=== PATIENT | male | born 1940 | race Caucasian/White ===

== ENCOUNTER 2024-09-26 21:39 | Emergency (ER) | payer OTHER, SELFPAY ==
[2024-09-26 21:42] VITALS: BP 157/91; BMI 27.8
[2024-09-26 22:00] VITALS: BP 143/88
[2024-09-26 22:19] LABS: ALT (SGPT) 20 U/L (0-50); AST (SGOT) 24 U/L (17-59); Albumin 4.1 g/dl (3.5-5.0); Alkaline Phosphatase 50 U/L (38-126); Blood Urea Nitrogen 28 mg/dl (9-20); Calcium 9.5 mg/dl (8.4-10.2); Carbon Dioxide 26 mmol/L (22-30); Chloride 107 mmol/L (98-107); Estimated Creatinine Clearance 51 ml/min; Glucose 100 mg/dl (70-99); Potassium 4.0 mmol/L (3.5-5.1); Sodium 137 mmol/L (135-145); Total Protein 6.4 g/dl (6.3-8.2); eGFR > 60.00
[2024-09-26 22:20] LABS: Hematocrit 46.7 % (39.0-52.0); Hemoglobin 15.5 g/dL (13.0-18.0); Mean Corp Hgb Conc. 33.2 g/dL (33.0-37.0); Mean Corpuscular Volume 95.7 fL (80.0-94.0); Nucleated Red Blood Cells % 0 % (-); Platelet Count 157 10^3/uL (130-400); Red Cell Dist. Width 14.4 % (11.5-14.5)
--- NOTE | 2024-09-26 22:52 | ED.CVA ---
History of Present Illness
General
Chief Complaint: CVA/TIA Symptoms
Source: patient and spouse
Exam Limitations: none
Time Seen by Provider: 09/26/24 21:57
Nursing documentation reviewed up to this point in time: agreed with
Onset of Stroke Symptoms
Onset of symptoms known: No
Time pt last seen normal is known: No
History of Present Illness
History of Present Illness:
Patient is an 83-year-old male past medical history of A-fib on Coumadin presents to the ER for evaluation. He reports he finished dinner around 7 PM and while sitting there was looking down at his placement. There was a toothpick on his placement
and he reports it appeared that the toothpick was moving to the right however he did not feel that he was spitting. He then stood up to go to the bathroom and felt a little off balance. The visual disturbance lasted for about 10 minutes EMS was
called and brought patient here to the ER he has been asymptomatic since. He had no associated headache nausea vomiting chest pain shortness of breath. No neck pain. No diplopia. No recent injury. No chiropractor manipulation of his neck. She
is yet to get back to work. Patient was admited in for vertigo 04/2018.
Past History
Past History
ED Past Medical History: Arrthythmia and Other (Pulmonary emboli)
ED Past Surgical History: Appendectomy and Urological
Social History
Tobacco: Non-smoker
Living: with family
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
Phy Exam
General Physical Exam
General Presentation: no apparent distress
General age: appears stated age
General Skin: warm and dry
General Habitus: normal
General Mental: alert
General Hydration: appears well hydrated
Eye Exam
Eye Exam: PERRL and other (no nystagmus b/l )
Eye Exam General: PERRL: bilateral and EOM intact: bilateral
Pupil Exam: Bilateral: round and reactive
Cardiovascular Exam
Cardiovascular Exam: regular rate/rhythm, no murmur and normal peripheral pulses
Pulmonary Exam
Pulmonary Exam: lungs clear and no respiratory distress
Neurological Exam
Neurological Exam: alert and oriented x3
Musculoskeletal Exam
Musculoskeletal Exam: full ROM
Skin Exam
Skin Exam: normal color and warm/dry
Psychiatric Exam
Psychiatric Exam: normal mood/affect
Course
Orders/Labs/Results
Orders:
Orders
09/26/24 21:52
EKG [Electrocardiogram (*1)] Urgent
Reason for Study: Tachycardia
EKG- Treatment ONCE
09/26/24 21:54
Complete Blood Count/With Diff Urgent
Comprehensive Metabolic Panel Urgent
09/26/24 22:00
PT/INR [Prothrombin Time] Urgent
09/26/24 22:42
0.9% Sodium Chloride 1000 ml [Nss] 1,000 ml IV BOLUS
09/26/24 22:43
CT Head W/o Iv Contrast Urgent
Comment:
Reason For Exam: dizziness
09/26/24 22:59
UA Reflex to Culture [Urinalysis Reflex To Culture] Urgent
Date Specimen was Collected: 09/26/24
Time Specimen was Collected: 22:53
Urine Microscopic Reflex Cult Urgent
Abnormal Lab Results
09/26/24 09/26/24 09/26/24
21:54 22:00 22:59
WBC 17.9 H 10^3/uL
(4.8-10.8)
MCV 95.7 H fL
(80.0-94.0)
MCH 31.8 H pg
(27.0-31.0)
Absolute Lymphs (auto) 13.5 H 10^3/uL
(1.2-3.4)
Neutrophils % 17.5 L %
(42.2-75.2)
Lymphocytes % 75.7 H %
(20.5-51.1)
PT 23.5 H Sec
(11.4-14.6)
BUN 28 H mg/dl
(9-20)
Glucose 100 H mg/dl
(70-99)
Ur Occult Blood Reflex 1+ A
(Negative)
Urine Bacteria (Reflex) Few A
(Negative)
Urine Albumin (Reflex) 1+ A
(Neg - Trace)
09/26/24 21:54
09/26/24 21:54
Vital Signs
Initial and Last Documented VS:
Initial Vital Signs
Temp Pulse Resp BP Pulse Ox
98.1 F 87 17 157/91 100
09/26/24 21:42 09/26/24 21:42 09/26/24 21:42 09/26/24 21:42 09/26/24 21:42
Last Documented Vital Signs
Temp Pulse Resp BP Pulse Ox
98.1 F 74 17 134/76 96
09/26/24 21:42 09/27/24 00:00 09/27/24 00:00 09/27/24 00:00 09/27/24 00:00
Shear Operator Helper consulted with Physician
Shear Operator Helper consulted with physician?: Yes
Name of Physician Consulted: Gracia
MDM/Problems Addressed
MDM/Problems Addressed:
Patient presented with vertigo type symptoms however has been asymptomatic upon arrival. He has been steady on his feet and presented with no neurological deficit .patient ambulated back and forth to the bathroom without any difficulty. No
headache no recent trauma or injury no chiropractic manipulation. It is documented the patient had vertigo previously when he was admitted in 2019. He denies any recent fever chills or illness. He is afebrile white count elevated however patient
has no infectious symptoms.
His BUN is mildly elevated he was given fluids in the ER. Urinalysis negative for infection lungs are clear no complaints of cough CAT scan unremarkable. Patient is in chronic A-fib and is anticoagulated on Coumadin with an INR of 2.08
Discussed close outpatient follow with PCP and to return if any worsening of symptoms Case reviewed ED physician
*Radiology
Radiology exam reviewed: radiology read reviewed
*Pulse Oximetry
SaO2: 99
Oxygen Mode of Delivery: Room air
Patient hypoxic: no
*EKG
Interpreted by ED Provider?: Yes
Rate: normal
Rhythm: a-fib
Ischemia: no ischemia
*Critical Care Note
Total Time (30-74mins, 75-104mins- exclusive of procedures): Not Applicable
Data Reviewed
Review of Other/Old Records Reveals: Discharge Summary and Other (Previous admission)
Source: patient and spouse
ED Attending Note
-
Portions of this chart may have been created with voice recognition software.� Occasional wrong word or��sound alike� substitutions may have occurred due to the inherent limitations of voice recognition software.
Discharge Plan
Departure
Patient Disposition: Home (Routine Discharge)
Date of Disposition: 09/27/24
Time of Disposition: 00:11
Patient with high blood pressure during this ER visit?: Yes
Condition: Fair
Covid-19: Not Applicable
Discharge Problem:
Vertigo
Instructions: Vertigo (a Type of Dizziness) (DC), BLOOD PRESSURE
Prescriptions:
No Action
bimatoprost [Lumigan] 1 DROP drops
1 drp BOTH EYES HS
dorzolamide-timolol 10 ML drops
1 drp BOTH EYES BID
warfarin [Jantoven] 1 MG tablet
3.5 mg PO DAILY
coenzyme Q10 [Co Q-10] 200 MG capsule
200 mg PO Daily
Vitamin D
500 mg PO Daily
meclizine 25 MG tablet
25 mg PO Q8HPRN PRN (Reason: dizziness) Qty: 12 0RF
Referrals:
NONE,* [Active, Internal Medicine]
Activity Restrictions/Additional Instructions:
Follow-up with your family doctor in the next several days for reevaluation of your symptoms. You were dehydrated in the ER and you were given a liter of fluids however please be sure to increase fluid intake.
Return if any worsening of symptoms including any return of dizziness balance issues headache or any further concerns
Interventions
Interventions:
*Risk Screen - Suicide Last Done: 09/26/24 21:42
*General Assessment Last Done: 09/26/24 21:42
*Neglect/Abuse Screening Last Done: 09/26/24 21:42
*ED- Fall Risk Assessment Last Done: 09/26/24 21:42
*ED COVID-19 Vaccine History Last Done: 09/26/24 21:42
*Nursing Disposition Last Done: 09/27/24 00:10
ED- Pulmonary Assessment Last Done: 09/26/24 22:20
ED- Neurological Assessment Last Done: 09/26/24 22:20
ED- Cardiac Assessment Last Done: 09/26/24 22:20
ED Swallowing Screen Last Done: 09/27/24 00:09
Discharge Date and Time
Print Language: MAURITIAN
[2024-09-26 23:00] VITALS: BP 155/87
[2024-09-26] MEDS: NSS 1000 IV (23:01)
[2024-09-26 23:07] LABS: INR 2.08; PT 23.5 Sec (11.4-14.6)
[2024-09-26 23:07] LABS: Urine Character Clear (Clear)
[2024-09-26 23:16] LABS: Urine Red Blood Cell 0-2 /HPF (0-2); Urine White Cell 0-2 /HPF (0-5)
[2024-09-27] VITALS: BP 134/76
== END 2024-09-27 00:20 | disposition home or self-care (01) ==
LOC: EMR 21:39
PROVIDERS: Emergency Medicine; Nurse Practitioner; EMERGENCY PHYSICIAN Emergency Medicine; FAMILY PHYSICIAN Family Medicine
DX: R42 Dizziness and giddiness (principal); I48.91 Unspecified atrial fibrillation; Z86.711 Personal history of pulmonary embolism; Z79.01 Long term (current) use of anticoagulants
CPT/HCPCS: 96360; 99284; 70450; 80053; 81003; 81015; 85025; 85610; 93005

== ENCOUNTER → 2024-10-12 09:23 | Outpatient (REF) | payer OTHER, SELFPAY | LOC: RCS 09:23 | PROVIDERS: ATTENDING PHYSICIAN Internal Medicine Cardiovascular Disease; FAMILY PHYSICIAN Family Medicine | DX: I77.810 Thoracic aortic ectasia (principal) | CPT/HCPCS: 93306 ==

== ENCOUNTER → 2024-11-09 11:21 | Outpatient (REF) | payer OTHER, SELFPAY | LOC: DHVS 11:21 | PROVIDERS: ATTENDING PHYSICIAN Internal Medicine Cardiovascular Disease; FAMILY PHYSICIAN Family Medicine | DX: G45.9 Transient cerebral ischemic attack, unspecified (principal) | CPT/HCPCS: 93880 ==